=== PATIENT | female | born 1965 | race Caucasian/White ===

== ENCOUNTER 2023-06-05 15:35 | Emergency (ER) | payer SELFPAY, OTHER ==
[2023-06-05] MEDS ORDERED: Ketorolac Tromethamine 30 MG (1 mL) VIAL ONE (15:56)
[2023-06-05] MEDS ORDERED: Orphenadrine Citrate 60 MG/2 ML VIAL ONE (16:05)
== END 2023-06-05 17:43 | disposition home or self-care (01) ==
LOC: NAV ERS 15:35
DX: S22.32XA Fracture of one rib, left side, initial encounter for closed fracture (principal); S30.0XXA Contusion of lower back and pelvis, initial encounter; W17.89XA Other fall from one level to another, initial encounter
CPT/HCPCS: 72100; 96374; 96375; J1885; J2360